=== PATIENT | female | born 1970 | race Caucasian/White ===

== ENCOUNTER 2019-10-07 10:08 | Emergency (ER) | payer SELFPAY ==
--- NOTE | 2019-10-07 10:28 | EDM.PDOC ---
ED HPI GENERAL MEDICAL PROBLEM - General Chief Complaint: General Stated Complaint: NEEDLE POKE WORK COMP Time Seen by Provider: 10/07/19 10:25 Source of Information: Reports: Patient History Limitations: Reports: No Limitations - History of Present Illness INITIAL COMMENTS - FREE TEXT/NARRATIVE: 49-year-old female in with a finger poke, needlestick from a patient with known hepatitis C. She was poked on the pulp of the middle finger left hand pain insulin needle that was in the sharps container. She forced bleeding for several minutes and washed thoroughly. There is no evidence of injury at this time but when she returned to work today they asked her to come in to get baseline labs. The home client, source of the needle, is HCV positive. Patient herself has had hep B vaccine. She feels fine. Onset: Sudden Duration: Day(s): (2 days ago) Location: Reports: Upper Extremity, Left Associated Symptoms: Reports: No Other Symptoms - Related Data Allergies Allergy/AdvReac Type Severity Reaction Status Date / Time Penicillins Allergy Swelling Verified 10/07/19 10:26 Home Meds: Home Meds levETIRAcetam [Keppra Xr] 500 mg PO BID 10/07/19 [History] Past Medical History - Past Health History Medical/Surgical History: Denies Medical/Surgical History Neurological History: Reports: Seizure - Infectious Disease History Infectious Disease History: Reports: Chicken Pox Social & Family History - Tobacco Use Smoking Status *Q: Never Smoker - Caffeine Use Caffeine Use: Reports: Coffee - Recreational Drug Use Recreational Drug Use: No ED ROS GENERAL - Review of Systems Review Of Systems: See Below Constitutional: Denies: Fever, Chills Respiratory: Denies: Shortness of Breath GI/Abdominal: Denies: Nausea, Vomiting ED EXAM, GENERAL - Physical Exam Exam: See Below Exam Limited By: No Limitations General Appearance: Alert, No Apparent Distress Respiratory/Chest: No Respiratory Distress Extremities: Other (Exam of the finger that got poked shows no evidence of injury or inflammation) Neurological: Alert, Oriented Psychiatric: Normal Affect, Normal Mood Course - Vital Signs Last Recorded V/S: Last Vital Signs Temp 95.8 F 10/07/19 10:26 Pulse 75 10/07/19 10:26 Resp 13 10/07/19 10:26 BP 127/82 10/07/19 10:26 Pulse Ox 99 10/07/19 10:26 - Orders/Labs/Meds Orders: Active Orders 24 hr Category Date Time Status HCV ANTIBODY Urgent Lab 10/07/19 10:57 Received Labs: Laboratory Tests 10/07/19 Range/Units 10:57 HIV-1 Ab Rapid Screen Non-reactive (NON-REACT.) - Re-Assessments/Exams Free Text/Narrative Re-Assessment/Exam: 10/07/19 10:37 Hepatitis C antibody and HIV were drawn. Patient can be returned to work without restrictions. Lab results will be sent to the patient when available. Departure - Departure Time of Disposition: 11:46 Disposition: Home, Self-Care 01 Condition: Good Clinical Impression: Needle stick injury of finger of left hand - Discharge Information Referrals: PCP,None [Primary Care Provider] - Forms: ED Department Discharge Care Plan Goals: Results will be sent to you when available, return to work without restrictions. - My Orders Last 24 Hours: My Active Orders 10/07/19 10:57 HCV ANTIBODY Urgent - Assessment/Plan Last 24 Hours: My Active Orders 10/07/19 10:57 HCV ANTIBODY Urgent
== END 2019-10-07 11:47 | disposition home or self-care (01) ==
LOC: JP.ED 10:08
DX: S61.233A Puncture wound without foreign body of left middle finger without damage to nail, initial encounter (principal); Z88.0 Allergy status to penicillin; W46.1XXA Contact with contaminated hypodermic needle, initial encounter; Y92.89 Other specified places as the place of occurrence of the external cause; Y99.0 Civilian activity done for income or pay
CPT/HCPCS: 36415; 86803; 87449; 99281; 99283